=== PATIENT | male | born 1960 | race Caucasian/White ===

== ENCOUNTER 2016-08-13 05:30 | Emergency (ER) | payer OTHER ==
[2016-08-13 06:08] VITALS: BMI 25.8
[2016-08-13] MEDS ORDERED: SODIUM CHLORIDE 1,000 ML IV STA (07:19)
--- NOTE | 2016-08-13 07:32 | PDOC ---
History of Present Illness - General Chief Complaint: Diarrhea Stated Complaint: ABD PAIN, DIARRHEA Time Seen by Provider: 08/13/16 06:55 History Source: Patient, Family (son - translated from [facility]) Exam Limitations: No Limitations (son in room - translated from [facility]) - History of Present Illness Initial Comments: 55 y/o M w/no PMH presents to ER with c/o diarrhea. Pt came back from [facility] yesterday (was there for 1 week) and had diarrhea approximately for 1 day before coming back to the [facility]. He arrived yesterday at 4 pm and since then has had 10-15 episodes of watery diarrhea (non-bloody). He was eating among other foods, street food and lots of meat which is not part of his usual diet there. He has had chills since yesterday and has body weakness as well. He has had a cough with yellowish sputum production that started around the same time as his GI issues. He has some dizziness and light-headedness. He denies N/V/F, SOB, abdominal pain, CP, calf pain. PCP: Dr. Castelan Past History - Travel Traveled outside of the country in the last 30 days: Yes If so, where?: [facility] (there for 1 week, returned yesterday) - Past Medical History Allergies/Adverse Reactions: Allergies Allergy/AdvReac Type Severity Reaction Status Date / Time No Known Allergies Allergy Verified 08/13/16 06:57 Home Medications: Ambulatory Orders Levofloxacin [Levaquin] 750 mg PO DAILY #5 tab 08/13/16 - Surgical History Abdominal Surgery: Yes (HERNIA) - Psycho/Social/Smoking Cessation Hx Suicidal Ideation: No Smoking History: Former smoker (Quit 15+ years ago) Have you smoked in the past 12 months: No If you are a former smoker, when did you quit?: 15 years ago Hx Alcohol Use: No Drug/Substance Use Hx: No Review of Systems - Review of Systems Able to Perform ROS?: Yes Comments:: CONSTITUTIONAL: +chills, generalized weakness Absent: fever, diaphoresis, malaise, loss of appetite HEENT: +rhinorrhea, Absent: nasal congestion, throat pain, difficulty swallowing, visual Changes CARDIOVASCULAR: +lightheadedness Absent: chest pain, palpitations, irregular heart rate, peripheral edema RESPIRATORY:+cough w/yellow sputum Absent: shortness of breath, dyspnea with exertion, hemoptysis GASTROINTESTINAL: +diarrhea Absent: abdominal pain, abdominal distension, nausea, vomiting, constipation, melena, hematochezia MUSCULOSKELETAL: +generalized body aches Absent: joint swelling NEUROLOGIC: +dizziness Absent: headache, focal weakness or paresthesias, unsteady gait, seizure, mental status changes PSYCHIATRIC: Absent: anxiety, depression, suicidal or homicidal ideation, hallucinations *Physical Exam - Vital Signs Last Vital Signs Temp Pulse Resp BP Pulse Ox 98.7 F 86 18 104/64 98 08/13/16 06:06 08/13/16 06:06 08/13/16 06:06 08/13/16 06:06 08/13/16 06:10 - Physical Exam Comments: GENERAL: Well developed, well nourished. Awake and alert. No acute distress. HEENT: Normocephalic, atraumatic. EOMI. No conjunctival pallor. Sclera are non- icteric. Oropharynx is clear. NECK: Supple. Full ROM. No lymphadenopathy. CARDIOVASCULAR: Regular rate and rhythm. No murmurs, rubs, or gallops. PULMONARY: No evidence of respiratory distress. Lungs clear to auscultation bilaterally. No wheezing, rales or rhonchi. ABDOMINAL: +hyperactive bowel sounds. Soft. Non-tender. Non-distended. No rebound or guarding. No organomegaly. MUSCULOSKELETAL: Normal range of motion at all joints. No bony deformities or tenderness. EXTREMITIES: No cyanosis. No clubbing. No edema. No calf tenderness. SKIN: Warm and dry. Normal capillary refill. No rashes. No jaundice. NEUROLOGICAL: Alert, awake, appropriate. Cranial nerves 2-12 grossly intact. Normal speech. PSYCHIATRIC: Cooperative. Good eye contact. Appropriate mood and affect. Heart Score/ECG Review - ECG Intrepretation Comment:: NSR @ 70 bpm QTc 403 ms No previous EKGs to compare with. ED Treatment Course - LABORATORY CBC & Chemistry Diagram: 08/13/16 08:25 08/13/16 08:25 - RADIOLOGY Radiology Studies Ordered: Category Date Time Status CHEST X-RAY PORTABLE* [RAD] Urgent Radiology 08/13/16 07:19 Ordered Medical Decision Making - Medical Decision Making 08/13/16 07:21 55 y/o M w/no PMH presents to ER with c/o diarrhea. Pt came back from [facility] yesterday (was there for 1 week) and had diarrhea approximately for 1 day before coming back to the [facility]. He arrived yesterday at 4 pm and since then has had 10-15 episodes of watery diarrhea (non-bloody). He was eating among other foods, street food and lots of meat which is not part of his usual diet there. He has had chills since yesterday and has body weakness as well. He has had a cough with yellowish sputum production that started around the same time as his GI issues. He has some dizziness and light-headedness. He denies N/V/F, SOB, CP , calf pain. Ordered: CBCD, CMP, UA, UAg for PNA, CXR, Mg, EKG, 1 L NS bolus. SIRS 0/4 currently. 08/13/16 09:25 UAg for PNA negative WBC: 8.2, 12.4% monocytes UA: 1+ blood CXR: -Findings suspicious for left base/retrocardiac infiltrate. -A vague 1 cm sized nodular density in the RUL on the frontal view is seen. CT recommended for further evaluation. A density overlies a lower thoracic vertebral body on the lateral projection measuring 8mm to 9mm in size is noted and it is unclear whether this is within the vertebral body or within the overlying lung. This can be further evaluated with CT. Non-contrast CT of chest ordered. 08/13/16 09:32 Electrolytes wnl. Awaiting CT chest. 08/13/16 11:38 CT chest shows: mild bibasil atelectatic changes with minimal atelectatic changes vs infiltrates in RUL. A few small pulmonary nodules in the right lung measuring up to 5.5 mm. Pt clinically appears to have RUL pna and traveler's diarrhea. Pt to be discharged with levaquin 750 mg for 5 days for travelers diarrhea and RUL pna. Pt to f/u with Pulm: Dr. Melton for lung nodules. Pt to f/u with PCP. Pt to return to ER if symptoms worsen. *DC/Admit/Observation/Transfer Diagnosis at time of Disposition: Pneumonia, Traveler's diarrhea - Discharge Dispostion Disposition: HOME Condition at time of disposition: Stable - Prescriptions Prescriptions: Levofloxacin [Levaquin] 750 mg PO DAILY #5 tab - Referrals Referrals: Carter Sterling [Primary Care Provider] - Alvin Melton MD [Staff Physician] - - Patient Instructions Printed Discharge Instructions: DI for Pneumonia -- Adult, DI for Diarrhea and Traveler's Diarrhea -- Adult Additional Instructions: You will need to take levaquin, an antibiotic, for 5 days to treat your pneumonia and your diarrhea. You will also need to follow up with a on air personality, Dr. Melton, to track the nodules found in your lungs on the cat scan. You will also need to follow up with your primary care physician. If your symptoms worsen, call your doctor or come back to the emergency room.
[2016-08-13 08:43] LABS: BASOPHIL 0.3 % (0-2.0); EOSINOPHIL 1.3 % (0-4.5); MCH 27.9 pg (25.7-33.7); MCHC 33.6 g/dl (32.0-35.9); MEAN PLT VOLUME 8.7 fl (7.5-11.1); NEUTROPHILS 65.2 % (42.8-82.8); PLATELET COUNT 173 K/MM3 (134-434); RDW 13.6 % (11.9-15.9); WHITE BLOOD COUNT 8.2 K/mm3 (4.0-10.0)
--- NOTE | 2016-08-13 08:46 | PDOC ---
Attending Attestation - Resident Resident Name: Tray Harris - ED Attending Attestation I have performed the following: I have examined & evaluated the patient, The case was reviewed & discussed with the resident, I agree w/resident's findings & plan, Exceptions are as noted - HPI HPI: 08/13/16 08:44 55-year-old male with no previous medical history presents to the ER after returning from [facility] with generalized weakness, malaise, cough productive of yellow sputum and numerous episodes of loose watery stools without abdominal pain/fever/hematochezia. - Physicial Exam PE: 08/13/16 08:45 Patient is awake and alert, afebrile, hemodynamically stable. There is no evidence of scleral icterus, mucous membranes are dry; lungs are clear; abdominal exams reveal no focal tenderness. There is no petechial rash. - Medical Decision Making 08/13/16 08:45 55-year-old male presents with productive cough and loose watery stools. Differential diagnoses includes viral syndrome versus community acquired pneumonia versus Legionella infection. We'll obtain CBC/CMP/magnesium. We'll obtain chest x-ray. Well-hydrated. Will reassess. 08/13/16 12:01 Patient is resting comfortably. CBC /CMP/UA are within normal limit. CT of chest reveals a questionable right sided infiltrate and several small pulmonary nodules which require outpatient follow-up. Patient's curb 65 score is 0. Will discharge with Levaquin by mouth for 5 days with pulmonary and medical follow-up as needed.
[2016-08-13 08:56] LABS: URINE APPEARANCE CLEAR; URINE BILIRUBIN NEGATIVE (NEGATIVE); URINE BLOOD 1+ (NEGATIVE); URINE COLOR LTYELLOW; URINE GLUCOSE (UA) NEGATIVE (NEGATIVE); URINE KETONE NEGATIVE (NEGATIVE); URINE LEUK ESTERASE NEGATIVE (NEGATIVE); URINE NITRITE NEGATIVE (NEGATIVE); URINE PROTEIN NEGATIVE (NEGATIVE); URINE UROBILINOGEN NEGATIVE E.U./dl (0.2-1.0)
[2016-08-13 08:59] LABS: URINE RBC <1 /hpf (0-3); URINE WBC <1 /hpf (3-5)
[2016-08-13 09:25] LABS: ALBUMIN 3.6 g/dl (3.4-5.0); ALK PHOS 83 U/L (45-117); ANION GAP 7 (8-16); BILIRUBIN,TOTAL 0.4 mg/dL (0.2-1.0); CALCIUM 8.7 mg/dL (8.5-10.1); CO2 29 mmol/L (21-32); COCKROFT - GAULT 101.14; CREATININE 0.9 mg/dL (0.7-1.3); GLUCOSE,RANDOM 87 mg/dL (74-106); MAGNESIUM 2.2 mg/dL (1.8-2.4); SGOT/AST 41 U/L (15-37); SGPT/ALT 44 U/L (12-78); TOT PROT 7.1 g/dl (6.4-8.2)
[2016-08-13 13:07] VITALS: BP 97/64; PULSE 66; TEMP 98.7
--- NOTE | 2016-08-13 15:50 | EKG ---
Test Reason : Blood Pressure : / mmHG Vent. Rate : 070 BPM Atrial Rate : 070 BPM P-R Int : 144 ms QRS Dur : 088 ms QT Int : 374 ms P-R-T Axes : 021 016 021 degrees QTc Int : 403 ms NORMAL SINUS RHYTHM NORMAL ECG NO PREVIOUS ECGS AVAILABLE Confirmed by FLORENCE MITCHELL MD ([id number]) on 08/13/2016 3:50:43 PM Referred By: Confirmed By:FLORENCE MITCHELL MD
== END 2016-08-13 13:07 | disposition home or self-care (01) ==
LOC: JER 05:30
PROC: 3E0337Z Introduction of Electrolytic and Water Balance Substance into Peripheral Vein, Percutaneous Approach (ICD-10-PCS; principal; 2016-08-13)
DX: J18.9 Pneumonia, unspecified organism (principal); R19.7 Diarrhea, unspecified
CPT/HCPCS: 36415; 71020-TC; 71250-TC; 80053; 81003; 81015; 83735; 85025; 87899; 93005; 93010; 96360; 99283-25